=== PATIENT | male | born 1980 | race Hispanic/Latino ===

== ENCOUNTER 2016-05-27 17:24 | Emergency (ER) | payer OTHER ==
[~2016-05-27] VITALS: Ht 175.3 cm; Wt 78.0 kg
[2016-05-27] MEDS ORDERED: CYCLOBENZAPRINE10 M1 PO (17:54)
[2016-05-27] MEDS ORDERED: IBUPROFEN800 M1 PO (17:54)
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
== END 2016-05-27 18:08 ==
LOC: ERH 17:24
DX: S39.012A Strain of muscle, fascia and tendon of lower back, initial encounter (principal); V49.40XA Driver injured in collision with unspecified motor vehicles in traffic accident, initial encounter